=== PATIENT | female | born 1965 | race Two or more races ===

== ENCOUNTER 2018-08-02 10:01 | Emergency (ER) | payer MEDICAID, OTHER ==
[~2018-08-02] VITALS: Ht 154.9 cm; Wt 63.5 kg
[2018-08-02 10:35] VITALS: BP 139/81
[2018-08-02] MEDS ORDERED: diphenhdrAMINE HCL 50 MG/1 ML VL IM ONE (11:30)
[2018-08-02] MEDS ORDERED: KETOROLAC TROMETH 60MG/2ML VIAL IM ONE (11:30)
[2018-08-02] MEDS ORDERED: HYDROcodone-ACET 7.5/325MG TAB PO ONE (12:30)
== END 2018-08-02 12:20 | disposition home or self-care (01) ==
LOC: ER 10:01
DX: M54.16 Radiculopathy, lumbar region (principal)
CPT/HCPCS: 72100; 96372; 99283; J1200; J1885